=== PATIENT | female | born 2000 | race Two or more races ===

== ENCOUNTER 2020-11-13 15:21 | Observation (INO) | payer MEDICAID ==
[~2020-11-13] VITALS: Ht 157.5 cm; Wt 56.7 kg
== END 2020-11-13 16:39 | disposition home or self-care (01) ==
LOC: LDRP 15:21
PROVIDERS: ADMIT Obstetrics & Gynecology; ATTEND Obstetrics & Gynecology
DX: O62.9 Abnormality of forces of labor, unspecified (principal); Z3A.34 34 weeks gestation of pregnancy
CPT/HCPCS: 59025; 81002; 94760; G0378; G0379

== ENCOUNTER 2021-07-14 17:57 | Emergency (ER) | payer MEDICAID ==
[~2021-07-14] VITALS: Ht 157.5 cm; Wt 54.4 kg
[2021-07-14 19:36] LABS: Basophils # (auto) 0.1 10 ^3/uL (0-0.2); Basophils % (auto) 0.6 % (0.0-2.0); Eosinophils # (auto) 0.7 10 ^3/uL (0-0.8); Eosinophils % (auto) 5.5 % (0.0-7.0); Hematocrit 37.2 % (36.0-46.0); Hemoglobin 12.8 g/dL (12.2-16.2); Lymphocytes # (auto) 2.5 10 ^3/uL (0.4-5.4); Lymphocytes % (auto) 20.8 % (10.0-50.0); Mean Corpuscular Hemoglobin 29.2 pg (28.0-32.0); Mean Corpuscular Hgb Conc. 34.3 g/dL (32.0-36.0); Mean Corpuscular Volume 85.1 fL (80.0-100.0); Monocytes % (auto) 8.4 % (0.0-12.0); Neutrophils # (auto) 7.9 10 ^3/uL (1.6-8.6); Neutrophils % (auto) 64.7 % (37.0-80.0); Nucleated Red Blood Cells % 0.1 %; Red Blood Cells 4.38 10^6/uL (4.0-5.20); Red Cell Distribution Width 14.5 % (11.8-14.3); White Blood Cell 12.2 10^3/uL (4.4-10.8)
[2021-07-15 01:22] LABS: Urine Bacteria None Seen /hpf (None Seen)
[2021-07-15 01:48] LABS: Urine Specific Gravity 1.029 (1.001-1.035)
[2021-07-15 01:49] LABS: Urine Blood 2+ /uL (Negative)
[2021-07-15 01:50] LABS: Urine Mucus FEW (None Seen); Urine WBC 2 /hpf (0 - 5); Urine WBC Clumps NONE SEEN /hpf (None Seen)
[2021-07-15 02:12] VITALS: BP 122/78
== END 2021-07-15 02:13 | disposition home or self-care (01) ==
LOC: ER 17:57
DX: O03.4 Incomplete spontaneous abortion without complication (principal); D72.829 Elevated white blood cell count, unspecified; Z3A.01 Less than 8 weeks gestation of pregnancy
CPT/HCPCS: 36415; 76801; 81001; 84702; 85025

== ENCOUNTER 2021-07-16 19:56 | Emergency (ER) | payer MEDICAID ==
[~2021-07-16] VITALS: Ht 157.5 cm; Wt 54.4 kg
[2021-07-16 19:57] VITALS: BP 114/80
[2021-07-17] MEDS ORDERED: KETOROLAC TROMETH 60MG/2ML VIAL IM ONE (00:15)
== END 2021-07-17 00:32 | disposition home or self-care (01) ==
LOC: ER 19:56
DX: M43.6 Torticollis (principal)
CPT/HCPCS: 96372; 99283; J1885

== ENCOUNTER 2024-01-26 22:28 | Observation (INO) | payer MEDICAID ==
[~2024-01-26] VITALS: Ht 157.5 cm; Wt 60.8 kg
[~2024-01-26 22:28] MED LIST: DICY10CA PO; ZOFR4T PO
[2024-01-26 23:51] LABS: Fern Testing Negative
[2024-01-27 00:13] LABS: Vaginal Bacteria Few; Vaginal Clue Cells None Seen; Vaginal Epithelial Cells Moderate; Vaginal Trichomonas Not Present
--- NOTE | 2024-01-27 00:44 | DVH ---
LIMITED OB ULTRASOUND > 14 WKS: HISTORY: cramping TECHNIQUE: Multiple real-time grayscale images of the gravid uterus with duplex Doppler color flow an d M-mode spectral analysis. FINDINGS: IUP single live fetus at 37 weeks 1 day based on composite averages of the BPD, head circumference, a bdominal circumference and femur length Estimated weight 3099 grams heart rate 144 beats per minute KRIS 15 cm The cervix measures 4.2 cm and appears closed. presentation cephalic. Placenta is anterior gr skyler 3 without evidence of previa or abruption. IMPRESSION: IUP single live fetus at 37 weeks 1 day AUA corresponding to an GEORGE of February 16, 2024
--- NOTE | 2024-01-27 14:24 | DVHDS2 ---
Physician Discharge Progress N Final Diagnosis: intact amniotic membranes fabian sommers contractions Operations or Procedures: Operations or Procedures S: 23yo IUP@38.3wks presents to OB triage with c/o possibly leaking fluid or just has vaginal d/c. Pt reports feeling "wet liquid down there" when she stood up at 2215. Also reports irregular uterine cramping and +FM. Denies UCs/LOF/VB/vision changes/RUQ pain. Denies UTI s/sx today. PNC with Dr. Rico, uncomplicated . Next appt is on 01/29/24.3 O: VSS UA wnl NST reactive (verified by 2 RNs) TOCO: no UCs noted SSE by RN: negative nitrazine and pooling SVE by RN: closed/thick/-2 Laboratory Tests Test 01/26/24 23:00 01/26/24 23:30 Range/Units Amniotic Fluid Ferning Test Negative Placental Liqrp-2-Wzhvviaxrxxib Negative Vaginal WBC (Wet Prep) None seen Vaginal RBC (Wet Prep) None seen Vaginal Epithelial Cells (Wet Prep) Moderate Vaginal Bacteria (Wet Prep) Few Vaginal Trichomonas (Wet Prep) Not present Vaginal Yeast (Wet Prep) None seen Vaginal Clue Cells (Wet Prep) None seen A: 23yo IUP@38.3wks intact amniotic membranes fabian sommers contractions P: D/C home [facility]KC/labor/PreE precautions reviewed f/u with Dr. Rico on 01/29/24 as scheduled Other Interventions Other Interventions [place] [address] Ph: [phone] DIAGNOSTIC IMAGING Diagnostic Imaging Report : [id number] Signed PATIENT: DONNA MCHUGH ACCT: [id number] UNIT: [id number] : 2000 LOC: [facility] RO[facility] / BED: TRIAGE2 / A AGE / SEX: 23 / F ADM STATUS: ADM IN SERVICE 0002 ORDERING PHYSICIAN: INDER FRIAS CNM PROCEDURE(s): OBUS - OB ULTRASOUND COMP GTR 14 WKS REASON: cramping ORDER NUMBER(s): [id number], ACCESSION NUMBER(s): [id number] LIMITED OB ULTRASOUND > 14 WKS: HISTORY: cramping TECHNIQUE: Multiple real-time grayscale images of the gravid uterus with duplex Doppler color flow and M-mode spectral analysis. FINDINGS: IUP single live fetus at 37 weeks 1 day based on composite averages of the BPD, head circumference, abdominal circumference and femur length Estimated weight 3099 grams heart rate 144 beats per minute KRIS 15 cm The cervix measures 4.2 cm and appears closed. presentation cephalic. Placenta is anterior grade 3 without evidence of previa or abruption. IMPRESSION: IUP single live fetus at 37 weeks 1 day AUA corresponding to an GEORGE of February 16, 2024 ATED BY: VIRAL PEÑA DO DICTATED DATE/TIME: 01/27/2439 SIGNED BY: VIRAL PEÑA DO SIGNED DATE/TIME: 01/27/2439 CC: Condition on Discharge: Stable Disposition: Home Discharge Instructions: Diet: Regular Activity: No Restrictions, As Tolerated Medications: see med list Follow Up Care: Specialist: f/u with Dr. Rico on 01/29/24 as scheduled Discharge Statement: "Patient was advised to return to the ER or call 911 if any headaches, dizziness, shortness of breath, chest pain, abdominal pain, bleeding, fevers, or worsening of medical condition. Patient was counseled about treatment plan, medications, possible side effects, patientverbalized understanding. All questions were answered to the best of my ability. This discharge took greater then 30 minutes in planning, reviewing documentation, counseling the patient, and discussing with other team members." INDER FRIAS CNM Jan 27, 2024 14:24
== END 2024-01-27 00:58 | disposition home or self-care (01) ==
LOC: LDRP 22:28
PROVIDERS: ADMIT Obstetrics & Gynecology; ATTEND Obstetrics & Gynecology
DX: O47.9 False labor, unspecified (principal); Z3A.38 38 weeks gestation of pregnancy; Z79.899 Other long term (current) drug therapy; Z98.890 Other specified postprocedural states
CPT/HCPCS: 59025; 76805; 81002; 84112; 87210; 94760; G0378; Q0114